=== PATIENT | female | born 1995 | race Caucasian/White ===

== ENCOUNTER → 2024-01-24 16:30 | Outpatient (REF) | payer BC, SELFPAY ==
[2024-01-24 17:20] LABS: % Basophils 0.3 % (0-2); % Eosinophils 1.9 % (0-6); % Immature Granulocytes 0.3 % (0-0.5); % Lymphocytes 21.6 % (20.5-51.1); % Monocytes 8.7 % (1.7-9.3); % Neutrophils 67.2 % (42.2-75.2); Absolute Eosinophils 0.2 10^3/uL (0-0.7); Absolute Lymphocytes 2.6 10^3/uL (1.2-3.4); Hematocrit 42.9 % (37.0-47.0); Hemoglobin 14.7 g/dL (12.0-16.0); Mean Corp Hgb Conc. 34.3 g/dL (33.0-37.0); Mean Corpuscular Hgb 33.3 pg (27.0-31.0); Mean Corpuscular Volume 97.3 fL (81.0-99.0); Mean Platelet Volume 8.9 fL (7.4-10.4); Nucleated Red Blood Cells % 0 %; Platelet Count 330 10^3/uL (130-400); Red Blood Cell Count 4.41 10^6/uL (4.20-5.40); Red Cell Dist. Width 11.7 % (11.5-14.5); White Blood Cell Count 11.9 10^3/uL (4.8-10.8)
[2024-01-24 17:30] LABS: Urine Albumin Negative (Neg - Trace); Urine Bilirubin Negative (Negative); Urine Character Clear (Clear); Urine Color Yellow; Urine Glucose Negative (Negative); Urine Ketone Negative (Negative); Urine Leukocyte Negative (Negative); Urine Nitrite Negative (Negative); Urine Occult Blood Negative (Negative); Urine Urobilinogen Negative (Neg - 1+)
[2024-01-24 17:53] LABS: Erythrocyte Sed Rate 19 mm/hour (0-20)
[2024-01-24 18:12] LABS: Microalbumin, Random Urine < 0.6 mg/dl (0.6-1.7)
[2024-01-24 18:20] LABS: ALT (SGPT) 18 U/L (0-35); AST (SGOT) 25 U/L (14-36); Albumin 5.2 g/dl (3.5-5.0); Alkaline Phosphatase 83 U/L (38-126); Blood Urea Nitrogen 15 mg/dl (7-17); Calcium 9.7 mg/dl (8.4-10.2); Carbon Dioxide 21 mmol/L (22-30); Chloride 102 mmol/L (98-107); Glucose 123 mg/dl (70-99); Potassium 3.7 mmol/L (3.5-5.1); Sodium 142 mmol/L (135-145); Total Bilirubin 0.4 mg/dl (0.2-1.3); Total Protein 8.3 g/dl (6.3-8.2); eGFR > 60.00
[2024-01-24 18:21] LABS: Uric Acid 4.5 mg/dl (2.5-6.2)
[2024-01-24 18:41] LABS: FSH 1.9 mIU/ml; Luteinizing Hormone 1.63 mIU/ml; Prolactin 21.3 ng/ml (3.0-18.6)
[2024-01-25 09:05] LABS: Glycohemoglobin (HgbA1c) 5.3 % (4.0-5.6)
[2024-01-26 15:08] LABS: Adrenocorticotropic Hormone 29.1 pg/mL (7.2-63.3)
[2024-01-27 02:51] LABS: ANA, IgG Reflex to HEp-2 None Detected (None Detected)
[2024-01-27 06:26] LABS: CCP Antibody IgG/IgA 2 Units (0-19)
== END ==
LOC: REG 16:30
PROVIDERS: ATTENDING PHYSICIAN Family Medicine
DX: E22.1 Hyperprolactinemia (principal); Z87.42 Personal history of other diseases of the female genital tract; N80.9 Endometriosis, unspecified; R63.4 Abnormal weight loss
CPT/HCPCS: 36415; 80053; 81003; 82024; 82043; 82565; 82570; 82671; 83001; 83002; 83036; 84144; 84146; 84550; 85025; 85652; 86038; 86140; 86200

== ENCOUNTER → 2024-03-09 10:26 | Outpatient (REF) | payer BC, SELFPAY ==
[2024-03-09 11:35] LABS: Urine Calcium 16.5 mg/dl
[2024-03-09 11:36] LABS: 24 Hour Urine Total Volume 1600 ml
== END ==
LOC: REG 10:26
PROVIDERS: ATTENDING PHYSICIAN Family Medicine
DX: E22.1 Hyperprolactinemia (principal); Z87.42 Personal history of other diseases of the female genital tract; N80.9 Endometriosis, unspecified; R63.4 Abnormal weight loss
CPT/HCPCS: 81050; 82340; 82384

== ENCOUNTER 2024-06-16 08:12 | Emergency (ER) | payer BC, SELFPAY ==
[2024-06-16 09:41] VITALS: BMI 21.7
[2024-06-16 09:48] VITALS: BP 131/79
[2024-06-16 10:00] LABS: % Basophils 0.4 % (0-2); % Eosinophils 0.4 % (0-6); % Immature Granulocytes 0.1 % (0-0.5); % Lymphocytes 17.5 % (20.5-51.1); % Monocytes 6.1 % (1.7-9.3); % Neutrophils 75.5 % (42.2-75.2); Absolute Lymphocytes 1.4 10^3/uL (1.2-3.4); Absolute Monocytes 0.5 10^3/uL (0.1-0.6); Absolute Neutrophils 6.1 10^3/uL (1.4-6.5); Hematocrit 44.7 % (37.0-47.0); Hemoglobin 15.2 g/dL (12.0-16.0); Mean Corpuscular Hgb 32.9 pg (27.0-31.0); Mean Corpuscular Volume 96.8 fL (81.0-99.0); Mean Platelet Volume 9.1 fL (7.4-10.4); Nucleated Red Blood Cells % 0 %; Platelet Count 293 10^3/uL (130-400); Red Blood Cell Count 4.62 10^6/uL (4.20-5.40); Red Cell Dist. Width 11.8 % (11.5-14.5); White Blood Cell Count 8.1 10^3/uL (4.8-10.8)
[2024-06-16 10:09] LABS: HCG, Serum Qualitative Screen Negative
[2024-06-16 10:10] LABS: Urine Albumin Negative (Neg - Trace); Urine Bilirubin Negative (Negative); Urine Character Clear (Clear); Urine Color Yellow; Urine Glucose Negative (Negative); Urine Ketone 3+ (Negative); Urine Leukocyte Negative (Negative); Urine Nitrite Negative (Negative); Urine Occult Blood Negative (Negative); Urine Urobilinogen Negative (Neg - 1+)
[2024-06-16 10:13] LABS: ALT (SGPT) 20 U/L (0-35); AST (SGOT) 25 U/L (14-36); Albumin 4.6 g/dl (3.5-5.0); Alkaline Phosphatase 91 U/L (38-126); Blood Urea Nitrogen 9 mg/dl (7-17); Calcium 10.1 mg/dl (8.4-10.2); Carbon Dioxide 28 mmol/L (22-30); Chloride 103 mmol/L (98-107); Estimated Creatinine Clearance 104 ml/min; Glucose 100 mg/dl (70-99); Potassium 3.7 mmol/L (3.5-5.1); Sodium 139 mmol/L (135-145); Total Bilirubin 0.5 mg/dl (0.2-1.3); Total Protein 8.2 g/dl (6.3-8.2); eGFR > 60.00
--- NOTE | 2024-06-16 10:56 | ED.GENMED ---
History of Present Illness
General
Chief Complaint: Abdominal Symptoms
Source: patient and significant other
Exam Limitations: none
Time Seen by Provider: 06/16/24 09:10
History of Present Illness
History of Present Illness:
28-year-old female presents with a variety of complaints. Patient states that she has had symptoms for close to a year. She states that she does have a known history of anxiety but feels like this is not related to her anxiety. She has a metallic
taste in the mouth, 'bubbling and gurgling' in her stomach, palpitations, purpleish discoloration of her hands, yellowish discoloration of her feet, ketones in her urine. She also reports she has had labs and occasionally her blood sugar is high
and occasionally is normal. She does admit that is not always fasting. Patient is on a medication CAbergoline for her prolactinoma. Patient has been on anxiety medications and states are not helping. No fevers. No shortness of breath. She has
not been eating very well. She has had weight loss. No vomiting. No diarrhea. No melena. No hematochezia. Significant other reports that she has been on this medicine for almost 2 years for prolactinoma
Past History
Past History
ED Past Medical History: Asthma, Psychiatric (Anxiety) and Other (Endometriosis, prolactinoma)
ED Past Surgical History: Other
Social History
Tobacco: Non-smoker
Alcohol: None
Drug: None
Personal: Single
Living: with family
Employment: Student
Phy Exam
Physical Exam
Physical Exam:
CONSTITUTIONAL Patient alert and oriented to person, place and time. Well-appearing. Vital signs reviewed.
HEAD atraumatic, normocephalic.
EYES eyelids normal to inspection, Extraocular muscles intact, Conjunctiva normal, Sclera normal.
NECK normal range of motion, Trachea midline, no jugular venous distention.
RESPIRATORY CHEST No respiratory distress noted, Chest expansion equal, Bilateral breath sounds clear.
CARDIOVASCULAR regular rate and rhythm, Heart sounds normal.
ABDOMEN abdomen nontender, Bowel sounds normal. No distention.
BACK normal inspection, no obvious deformities
UPPER EXTREMITY range of motion normal, Motor strength normal, no cyanosis, no edema.
LOWER EXTREMITY range of motion normal, Motor strength normal, no cyanosis, no edema.
NEURO Speech normal, No focal motor deficits, Derby coma scale 15, Memory normal, Cranial Nerves intact to screening exam.
SKIN skin warm, dry, and normal in color.
Course
Orders/Labs/Results
Orders:
Orders
06/16/24 09:22
Test Result ONCE
06/16/24 09:40
Complete Blood Count/With Diff Urgent
Comprehensive Metabolic Panel Urgent
HCG, Serum Qualitative Screen Urgent
06/16/24 09:46
Urinalysis Reflex To Culture Urgent
Date Specimen was Collected: 06/16/24
Time Specimen was Collected: 09:42
Abnormal Lab Results
06/16/24 06/16/24
09:40 09:46
MCH 32.9 H pg
(27.0-31.0)
Neutrophils % 75.5 H %
(42.2-75.2)
Lymphocytes % 17.5 L %
(20.5-51.1)
Glucose 100 H mg/dl
(70-99)
Urine Ketones 3+ A
(Negative)
06/16/24 09:40
06/16/24 09:40
Vital Signs
Initial and Last Documented VS:
Initial Vital Signs
Temp Pulse Resp Pulse Ox
98.2 F 80 20 100
06/16/24 08:19 06/16/24 08:19 06/16/24 08:19 06/16/24 08:19
Last Documented Vital Signs
Temp Pulse Resp BP Pulse Ox
98.2 F 80 20 131/79 100
06/16/24 08:19 06/16/24 08:19 06/16/24 08:19 06/16/24 09:48 06/16/24 08:19
MDM/Problems Addressed
Differential Diagnosis Includes:
Medication side effect, anxiety, electrolyte disturbance, diabetes, kidney disease, liver disease, endocrine disorder
MDM/Problems Addressed:
Anxiety, abdominal pain, weight loss
*Pulse Oximetry
Patient hypoxic: no
*Web Operations Specialist Interpretation
Rate: normal
Interpretation: normal
Rhythm: sinus
*Critical Care Note
Total Time (30-74mins, 75-104mins- exclusive of procedures): Not Applicable
Data Reviewed
Source: patient and significant other
Prescriptions/Medications Considered But Not Given:
Considered head CT but no focal deficits
Patient Management
Escalation/DeEscalation of care consider admission/obs:
Patient presents with 1 year of symptoms. She otherwise appears well. She just does not feel like she has been able to figure out what is wrong with her. I did recommend close follow-up with endocrinology with regard to considerations as to
whether the medicine has anything to do with her symptoms. Otherwise her blood sugar is normal. Ketonuria likely related to starvation, As she states she has not been able to eat very well. No obvious emergency disorders. Will refer to PCP
ED Attending Note
-
Portions of this chart may have been created with voice recognition software.� Occasional wrong word or��sound alike� substitutions may have occurred due to the inherent limitations of voice recognition software.
Discharge Plan
Departure
Patient Disposition: Home (Routine Discharge)
Date of Disposition: 06/16/24
Time of Disposition: 11:07
Patient with high blood pressure during this ER visit?: No
Discharge Problem:
Palpitations, GERD (gastroesophageal reflux disease), Dehydration
Instructions: Clear Liquid Diet
Prescriptions:
New
pantoprazole [Protonix] 40 mg tablet,delayed release (DR/EC)
40 mg PO DAILY Qty: 30 0RF
Rx Instructions:
Please take 30 minutes prior to eating or drinking anything in the morning.
No Action
amoxicillin-pot clavulanate 1 TABLET tablet
1 tab PO Q12 Qty: 14 0RF
ibuprofen 600 MG tablet
600 mg PO Q6HPRN PRN (Reason: pelvic pain) Qty: 20 0RF
Referrals:
Curtis Calvillo MD [Family Provider] -
Activity Restrictions/Additional Instructions:
Please see your doctor next 3 to 5 days for follow-up and reevaluation. Please consider follow-up with endocrinology for further workup and considerations of your symptoms. Please use antiacid 30 minutes prior to breakfast every morning. Return
immediately for shortness of breath, chest pain, vomiting, fevers or any other concerns
Interventions
Interventions:
*Risk Screen - Suicide Last Done: 06/16/24 09:50
*General Assessment Last Done: 06/16/24 09:50
ED- Fall Risk Assessment Last Done: 06/16/24 09:50
VJ-Rmsgtn-Cspohgqtfs Assessment Last Done: 06/16/24 09:50
Discharge Date and Time
Print Language: GUINEAN
[2024-06-16 11:48] VITALS: BP 124/68
== END 2024-06-16 11:48 | disposition home or self-care (01) ==
LOC: EMR 08:12
PROVIDERS: EMERGENCY PHYSICIAN Emergency Medicine; FAMILY PHYSICIAN Family Medicine
DX: R00.2 Palpitations (principal); K21.9 Gastro-esophageal reflux disease without esophagitis; E86.0 Dehydration; F41.9 Anxiety disorder, unspecified; J45.909 Unspecified asthma, uncomplicated
CPT/HCPCS: 99283; 80053; 81003; 84703; 85025

== ENCOUNTER → 2024-11-18 06:36 | Outpatient (REF) | payer BC, SELFPAY ==
[2024-11-18 07:36] LABS: Hematocrit 44.3 % (37.0-47.0); Hemoglobin 14.6 g/dL (12.0-16.0); Mean Corp Hgb Conc. 33.0 g/dL (33.0-37.0); Mean Corpuscular Volume 99.3 fL (81.0-99.0); Nucleated Red Blood Cells % 0 %; Platelet Count 320 10^3/uL (130-400); Red Cell Dist. Width 11.9 % (11.5-14.5)
[2024-11-18 08:12] LABS: Glucose 104 mg/dl (70-99); Iron 153 ug/dl (37-170)
[2024-11-18 08:21] LABS: Total Iron Binding Capacity 317 ug/dl (265-497)
[2024-11-18 08:24] LABS: Free T3 4.20 pg/ml (2.77-5.27); Vitamin D, 25-OH*** 66.2 ng/mL (30-80)
[2024-11-18 08:42] LABS: Ferritin 21.2 ng/ml (6.24-137)
[2024-11-18 08:53] LABS: Glycohemoglobin (HgbA1c) 5.0 % (4.0-5.6)
[2024-11-18 09:13] LABS: Folate > 20.0 ng/ml (2.76-20); Vitamin B12 852 pg/ml (239-931)
[2024-11-19 19:46] LABS: Thyroglobulin 15.3 ng/mL (1.3-31.8); Thyroglobulin Antibodies <1.5 IU/mL (0.0-4.0)
== END ==
LOC: REG 06:36
PROVIDERS: ATTENDING PHYSICIAN Obstetrics & Gynecology Gynecology; FAMILY PHYSICIAN Family Medicine
DX: R94.7 Abnormal results of other endocrine function studies (principal); Z13.29 Encounter for screening for other suspected endocrine disorder; R53.83 Other fatigue; E88.819 Insulin resistance, unspecified; E56.9 Vitamin deficiency, unspecified
CPT/HCPCS: 36415; 82306; 82607; 82728; 82746; 82947; 83036; 83525; 83540; 83550; 84146; 84432; 84443; 84481; 84630; 85025; 86376; 86800

== ENCOUNTER → 2025-03-24 07:26 | Outpatient (REF) | payer BC, SELFPAY | LOC: HWRAD 07:26 | PROVIDERS: ATTENDING PHYSICIAN Obstetrics & Gynecology; FAMILY PHYSICIAN Family Medicine | DX: E07.9 Disorder of thyroid, unspecified (principal) | CPT/HCPCS: 76536 ==